=== PATIENT | male | born 1950 | race Caucasian/White ===

== ENCOUNTER → 2017-10-10 | Outpatient (CLI) | payer MEDICARE, OTHER | END | disposition home or self-care (01) | LOC: KCIC 08:02 | DX: M75.102 Unspecified rotator cuff tear or rupture of left shoulder, not specified as traumatic (principal); M25.712 Osteophyte, left shoulder | CPT/HCPCS: 73030 ==

== ENCOUNTER → 2018-03-14 | Outpatient (CLI) | payer MEDICARE ==
[~2018-03-14] MED LIST: ASPI-630 PO; LISI-130 PO
--- NOTE | 2018-03-14 11:30 | KCIC ---
CT MAXILLOFACIAL WO CONTRAST dated 03/14/2018 9:30 AM Indication: Nasal congestion, polyps.. Comparison: No comparison is available. Technique: Contiguous axial imaging the maxillofacial bones obtained with thin cut coronal and sagittal reconstruction. One or more of the following individualized dose reduction techniques were utilized for this examination: 1. Automated exposure control 2. Adjustment of the mA and/or kV according to patient size 3. Use of iterative reconstruction technique Findings: Mild mucosal thickening of the bilateral maxillary sinus. There are rounded areas of increased density at the inferior maxillary sinus on the right that could represent small polyps or mucous retention cysts. Moderate mucosal thickening of the bilateral ethmoid air cells with small polypoid foci in the upper aspect of the nasal cavity and anterior ethmoid air cells. There is a prominent jigna bullosa on the right. There is hypertrophy of the bilateral nasal turbinates. Sphenoid sinuses and frontal sinuses are clear. The nasal septum is mildly deviated to the left. Prominent nasal septal spur. No destructive changes or periostitis. Ostomy units and infundibula are patent. The mastoid air cells and middle ears are clear. Imaged portions the brain parenchyma unremarkable. There is mild generalized atrophy. No significant soft tissue abnormality. Degenerative changes of the atlantoaxial joint. Atherosclerotic calcifications of the parasellar carotid and vertebral arteries. IMPRESSION: 1. Mild to moderate mucosal thickening of the bilateral ethmoid and maxillary sinuses. There small mucous retention cysts or polyps at the inferior mastoid sinus and the right. 2. Nodular foci of increased density at the upper nasal cavity and anterior ethmoid air cells suggestive of polyps. Correlate with clinical exam. 3. Nasal septal deviation to the left. Electronically signed by: Spencer Cr MD (03/14/2018 11:27 AM) [facility]
== END | disposition home or self-care (01) ==
LOC: KCIC CT 08:51
PROVIDERS: ATTEND Otolaryngology
DX: J34.1 Cyst and mucocele of nose and nasal sinus (principal); J34.2 Deviated nasal septum; J34.89 Other specified disorders of nose and nasal sinuses; J33.8 Other polyp of sinus; J32.9 Chronic sinusitis, unspecified; I65.29 Occlusion and stenosis of unspecified carotid artery
CPT/HCPCS: 70486

== ENCOUNTER → 2018-08-28 | Outpatient (CLI) | payer MEDICARE ==
[~2018-08-28] MED LIST changes: +AMLO10TA8 PO; +ATOR20TA58 PO; +CETI10TA16 PO; +CYAN25008 PO; +FERR325T14 PO; +FURO20TA3 PO; +GABA-585 PO; +LABE200T4 PO; +LISI-334 PO; +MELA3TAB2 PO; +POTA20TA82 PO; +TAPE75TA3 PO; +TERA10CA3 PO; +TRIA1TAB5 PO; +WARF4TAB64 PO
[2018-08-28 09:58] LABS: BASO # 0.1 x10^3/uL (0.0-0.2); BASO % 1 % (0-3); EOS # 0.1 x10^3/uL (0.0-0.7); EOS % 1 % (0-3); HEMOGLOBIN 15.5 g/dL (13.0-17.5); LYMPH # 0.9 x10^3/uL (1.0-4.8); LYMPH % 10 % (24-48); MEAN CORPUSCULAR HEMOGLOBIN 32 pg (25-35); MEAN CORPUSCULAR HGB CONC 34 g/dL (31-37); MEAN CORPUSCULAR VOLUME 96 fL (79-100); MONO # 1.2 x10^3/uL (0.0-1.1); MONO % 14 % (0-9); NEUT # 6.4 x10^3uL (1.8-7.7); NEUT % 74 % (31-73); PLATELET COUNT 205 x10^3/uL (140-400); RED CELL DISTRIBUTION WIDTH 13.8 % (11.5-14.5); WHITE BLOOD COUNT 8.7 x10^3/uL (4.0-11.0)
[2018-08-28 10:13] LABS: ALBUMIN 4.1 g/dL (3.4-5.0); CREATININE 0.7 mg/dL (0.7-1.3); GFR 112.1; POTASSIUM 3.2 mmol/L (3.5-5.1); PROTHROMBIN TIME PATIENT 13.1 SEC (11.7-14.0)
[2018-08-28 11:02] LABS: BILIRUBIN,URINE SMALL (NEG); CLARITY,URINE CLEAR; COLOR,URINE AMBER; NITRITE,URINE NEGATIVE (NEG); PH,URINE 6.5; PROTEIN,URINE 30 mg/dL (NEG-TRACE)
[2018-08-28 11:11] LABS: BACTERIA,URINE FEW /HPF (0-FEW); RBC,URINE 0 /HPF (0-2); SQUAMOUS EPITHELIAL CELL,UR OCC /LPF
--- NOTE | 2018-08-28 17:25 | RAD ---
CHEST PA LATERAL Technique: PA and lateral views of the chest were obtained. Clinical History: pre op evaluation for right knee surgery Comparison: None. Findings: The heart and pulmonary vasculature appear within normal limits. The lungs are clear. The pleural margins are clear. Impression: No acute chest process is seen. Electronically signed by: Reinaldo Whitehead III, MD (08/28/2018 5:22 PM) [facility]
--- NOTE | 2018-09-08 10:20 | NUR ---
PRE - OP TESTS REPORTS WERE FAXED TO -PCP A 1222 AND ;S OFFICE AT 1231 08/29/2018 AND RECEIVED CONFIAMATIOS IN BOTH OFFICES. URINE TEST WAS REPEATED ALSO AT PCP'S OFFICE, SEE 'S H&P. MEDICAL CLEARANCE OF AND CARDIAC CLEARANCE OF ALONG WITH ECHOCARDIOGRAM REPORT WERE FAXED TO 'S OFFICE 09/07/2018 At 1015 AND RECEIVED TRANSMITTAL CONFIRMATION.
== END | disposition home or self-care (01) ==
LOC: SURGPAT 14:26
PROVIDERS: ATTEND Orthopaedic Surgery
DX: Z01.818 Encounter for other preprocedural examination (principal); M17.11 Unilateral primary osteoarthritis, right knee
CPT/HCPCS: 36415; 71046; 80048; 81001; 82040; 82306; 85025; 85610; 85651; 85730; 87086; 87641

== ENCOUNTER 2018-09-12 10:42 | Inpatient (IN) | payer MEDICARE ==
[~2018-09-12] VITALS: Ht 190.5 cm; Wt 148.3 kg
[2018-09-12] VITALS (7 sets, daily range): BP systolic 128–145; BP diastolic 74–86
[~2018-09-12 10:42] MED LIST changes: +IV RINGERS,LACTATED 1000ML 1,000 ML IV SCH; +MORPHINE SULFATE 5 MG, KETOROLAC 30MG VIAL 30 MG, ROPIVacaine 0.5% PF 60 ML, EPINEPHrin... INT ART ONE; +ONDANSETRON PF 4 MG/2 ML VIAL. IV PRN; +PROCHLORPERAZINE 10 MG/2 ML VIAL. IV PRN; -TAPE75TA3 PO; +TRANEXAMIC ACID 1,000 MG in IV NORMAL SALINE 50ML 50 ML INJ ONE; -WARF4TAB64 PO; +fentaNYL PF VIAL 100 MCG/2 ML VIAL IV PRN
[2018-09-12] MEDS ORDERED: MELOXICAM 7.5 MG TABLET PO ONE ×2 (11:38→11:44)
[2018-09-12] MEDS ORDERED: HYDROcodone/APAP 7.5/325MG 1 TAB TABLET ONE (11:38)
[2018-09-12] MEDS ORDERED: PROPOFOL 20 ML IV ONE (11:41)
[2018-09-12] MEDS ORDERED: LIDOCAINE 2% PF 5 ML VIAL. ONE (11:41)
[2018-09-12] MEDS ORDERED: ROCURONIUM 50 MG/5 ML VIAL. ONE (11:41)
[2018-09-12] MEDS ORDERED: ONDANSETRON PF 4 MG/2 ML VIAL. ONE (11:41)
[2018-09-12] MEDS ORDERED: DEXAMETHASONE SOD PHOS 4 MG/ML VIAL ONE (11:41)
[2018-09-12] MEDS ORDERED: fentaNYL PF VIAL 100 MCG/2 ML VIAL ONE ×4 (11:42→17:09)
[2018-09-12] MEDS ORDERED: HYDROcodone/APAP 7.5/325MG 1 TAB TABLET PO ONE (11:45)
[2018-09-12 12:45] LABS: PROTHROMBIN TIME PATIENT 13.6 SEC (11.7-14.0)
[2018-09-12] MEDS ORDERED: ceFAZolin SODIUM IV Push 1 GM VIAL. IVP ONE ×2 (14:35→19:00)
[2018-09-12] MEDS ORDERED: ceFAZolin SODIUM 1 GM VIAL ONE (14:52)
[2018-09-12] MEDS ORDERED: NEOSTIGMINE METHYLSULFATE 5 MG/5 ML SYRINGE. ONE (15:12)
[2018-09-12] MEDS ORDERED: GLYCOPYRROLATE 1 MG/5 ML VIAL. ONE (15:12)
[2018-09-12] MEDS ORDERED: MORPHINE SULFATE 2 MG/ML VIAL. ONE (17:09)
[2018-09-12] MEDS ORDERED: PROCHLORPERAZINE 10 MG/2 ML VIAL. ONE (17:09)
[2018-09-12] MEDS: fentaNYL PF VIAL 100 MCG/2 ML VIAL IV PRN ×2 (17:10→17:15)
[2018-09-12] MEDS: MORPHINE SULFATE 2 MG/ML VIAL. IV PRN ×2 (17:32→17:45)
--- NOTE | 2018-09-12 17:45 | PDOC4 ---
Operative Note Operative Note Date of surgery: 09/12/2018 Preoperative diagnosis: Degenerative joint disease right knee Postoperative diagnosis: Same Operative procedure: Right total knee arthroplasty Surgeon: Mark Assist: Lisa Henson Anesthesia: Gen. Estimated blood loss: 50 mL Complications: None Drains/catheters: Hemovac and pain catheter intra-articular Specimens: Cartilage surfaces to pathology Operative indications: Please see my preoperative note and clinic evaluation for detailed preoperative indications and note that we covered risks benefits postoperative course of total knee arthroplasty including the possibility of infection continued pain premature wear or loosening nerve or blood vessel damage medical or other anesthetic complications among others he agrees to proceed with surgical evaluation and treatment. Operative text: Patient was identified procedure verified patient placed in the supine position on the operating table. After adequate amounts of general anesthesia were administered the right lower extremity was prepped and draped in standard sterile fashion with a thigh tourniquet. After timeout was performed patient procedure identified and verified the right lower extremity was exsanguinated with Esmarch bandage tourniquet inflated to 350 mmHg and a midline incision was made with a medial parapatellar approach. Patella was everted and fat pad was excised. Intramedullary guide was placed and a 5 distal standard cut was made. Femoral sizing was carried out with posterior referencing and a size 8 cutting block was placed to cut the anterior posterior and chamfer cuts. Extra medullary tibial cutting guide was then placed and a trial size 7 journey baseplate trial was used with a 9 mm spacer with excellent ligament balance in flexion extension varus and valgus patella was then cut to accommodate a resurfacing 35 mm patella which was medialized lateral patellar bone was removed with a saw and a chamfered fashion to prevent any bony contact. Excellent pa tellofemoral tracking stability and motion were noted throughout. Trial components were removed thorough irrigation carried out normal saline solution bleeding points were controlled by electrocautery and the following components were cemented in place with polymethylmethacrylate cement: A size 7 journey nonporous tibial baseplate a size 8 left posterior stabilized journey 2 Oxinium femoral component and a 35 mm resurfacing round patellar component. A 9 mm spacer was placed with the knee in extension after removing any excess cement. After cement was dry spacer was removed thorough irrigation carried out normal saline solution and a 9 mm journey 2 articular insert was snapped in place Hemovac drain and pain catheter were placed pain catheter mixture was injected throughout the joint capsule and surrounding tissues retinaculum closure with #2 Ethibond suture and #1 strata fix suture in a running fashion. Subcutaneous closure with buried Vicryl suture subcuticular 3-0 strata fix Monocryl laura dressing with Acticoat was placed toes were noted be warm pink find deflation of tourniquet patient returned recovery room in stable condition having tolerated procedure well. ANIKA TRAORE MD September 12, 2018 17:45
[2018-09-12] MEDS ORDERED: HYDROmorphone 2 MG/ML VIAL ONE (17:52)
[2018-09-12] MEDS: HYDROmorphone 2 MG/ML VIAL IV PRN ×4 (17:55→18:43)
[2018-09-12] MEDS ORDERED: DEXTROSE 50% 25 GM / 50ML DISP.SYRIN. IV PRN (18:30)
[2018-09-12] MEDS ORDERED: diphenhydrAMINE 50 MG/ML VIAL IV PRN (18:30)
[2018-09-12] MEDS ORDERED: MORPHINE SULFATE 4 MG/ML VIAL. IV PRN (18:30)
[2018-09-12] MEDS ORDERED: fentaNYL PF VIAL 100 MCG/2 ML VIAL IV PRN (18:30)
[2018-09-12] MEDS ORDERED: 0.9 % SODIUM CHLORIDE 10 ML DISP.SYRIN. IV PRN (18:30)
[2018-09-12] MEDS ORDERED: CALCIUM CARBONATE 500 MG TAB.CHEW PO PRN (18:30)
[2018-09-12] MEDS ORDERED: PROCHLORPERAZINE 5 MG TABLET. PO PRN (18:30)
[2018-09-12] MEDS ORDERED: oxyCODONE IR 5 MG TABLET PO PRN (18:30)
[2018-09-12] MEDS ORDERED: ZOLPIDEM 5 MG TABLET. PO PRN (18:30)
--- NOTE | 2018-09-12 18:40 | RAD ---
EXAM: Right knee, 2 views. HISTORY: Arthroplasty. COMPARISON: None. FINDINGS: 2 views of the right knee are obtained. There is a right knee arthroplasty in expected position. There is surrounding soft tissue gas, joint fluid and a surgical drain due to recent surgery. There are extensive atherosclerotic vascular calcifications. IMPRESSION: Right knee arthroplasty in expected position. Electronically signed by: Rita Durbin MD (09/12/2018 6:37 PM) [facility]
--- NOTE | 2018-09-12 19:00 | NUR ---
pt transfered from PACU via bed accompanied by staff and family members pt had right total knee ,rating pain as 4 @ this time.right lower extremities still with numbness able to wiggle toes pedal pulses palpable.
[2018-09-12] MEDS: KETOROLAC 30MG VIAL 30 MG, BUPIVACAINE MPF 0.25% 20 ML, EPINEPHrine 0.5 MG in TOTAL VOL... INT ART SCH (19:41)
[2018-09-12] MEDS ORDERED: NON FORMULARY ITEM (Melatonin 1 TAB) PO SCH (21:00)
[2018-09-12] MEDS ORDERED: IV NORMAL SALINE 1000ML BAG 1,000 ML IV SCH (21:00)
[2018-09-12] MEDS ORDERED: WARFARIN 7.5 MG TABLET. PO ONE (21:00)
[2018-09-12] MEDS: TERAZOSIN 5 MG CAPSULE. PO SCH (21:03)
[2018-09-12] MEDS: amLODIPine BESYLATE 10 MG TABLET PO SCH (21:06)
[2018-09-12] MEDS: LISINOPRIL 20 MG TABLET PO SCH (21:07)
[2018-09-12] MEDS: LABETALOL HCL 200 MG TABLET PO SCH (21:08)
[2018-09-12] MEDS: ceFAZolin SODIUM 3 GM in IV DEXTROSE 5% 100ML 100 ML IV SCH (21:08)
[2018-09-13] VITALS (7 sets, daily range): BP systolic 87–155; BP diastolic 53–85
[2018-09-13] MEDS: ceFAZolin SODIUM 3 GM in IV DEXTROSE 5% 100ML 100 ML IV SCH ×2 (03:03→08:08)
--- NOTE | 2018-09-13 03:50 | NUR ---
pt voiding small amount of urine 25ml to 50 ml bladder scan pt showing 189ml pt denies feeling pressure on the bladder area instructed pt to let nurse know if he start feeling bladder pressure.
[2018-09-13] MEDS ORDERED: GABAPENTIN 100 MG CAPSULE. PO SCH (06:00)
[2018-09-13] MEDS: ONDANSETRON ODT 4 MG TAB.RAPDIS. PO SCH ×4 (06:00→16:59)
[2018-09-13] MEDS: ONDANSETRON PF 4 MG/2 ML VIAL. IV SCH ×4 (06:00→18:00)
[2018-09-13] MEDS: traMADol 50 MG TABLET PO SCH ×3 (06:00→17:00)
[2018-09-13] MEDS ORDERED: MAGNESIUM HYDROXIDE 2,400 MG/30 ML ORAL.SUSP. PO PRN (06:00)
[2018-09-13 06:30] LABS: HEMATOCRIT 39.3 % (39.0-53.0); HEMOGLOBIN 13.3 g/dL (13.0-17.5)
[2018-09-13 06:35] LABS: PROTHROMBIN TIME PATIENT 13.6 SEC (11.7-14.0)
[2018-09-13] MEDS: KETOROLAC 30MG VIAL 30 MG, BUPIVACAINE MPF 0.25% 20 ML, EPINEPHrine 0.5 MG in TOTAL VOL... INT ART SCH (07:05)
[2018-09-13] MEDS: POTASSIUM CHLORIDE 20 MEQ TABLET.ER. PO SCH (08:15)
[2018-09-13] MEDS: SENNOSIDES/DOCUSATE 8.6/50MG TABLET. PO SCH (08:16)
[2018-09-13] MEDS: MELOXICAM 7.5 MG TABLET PO SCH (08:16)
[2018-09-13] MEDS: FERROUS SULFATE 325 MG TABLET. PO SCH ×2 (08:16→16:59)
[2018-09-13] MEDS: CYANOCOBALAMIN (VITAMIN B-12) 1,000 MCG TABLET. PO SCH (08:17)
[2018-09-13] MEDS: MULTIVITAMIN with MINERAL TABLET. PO SCH (08:17)
[2018-09-13] MEDS: LABETALOL HCL 200 MG TABLET PO SCH ×2 (08:18→21:24)
[2018-09-13] MEDS: ASPIRIN CHEWABLE 81 MG TABLET. PO SCH (08:19)
[2018-09-13] MEDS: FUROSEMIDE 20 MG TABLET PO SCH (08:19)
[2018-09-13] MEDS: CETIRIZINE HCL 10 MG TABLET. PO SCH (08:19)
[2018-09-13] MEDS: TRIAMTERENE/HCTZ 37.5/25MG TABLET. PO SCH (08:20)
[2018-09-13] MEDS ORDERED: FERROUS SULFATE 325 MG TABLET. PO SCH (09:00)
[2018-09-13] MEDS: LISINOPRIL 20 MG TABLET PO SCH ×2 (09:00→21:21)
[2018-09-13] MEDS ORDERED: ATORVASTATIN CALCIUM 20 MG TABLET PO SCH (09:00)
[2018-09-13] MEDS: amLODIPine BESYLATE 10 MG TABLET PO SCH ×2 (09:00→21:22)
[2018-09-13] MEDS: ACETAMINOPHEN 500 MG TABLET PO SCH ×3 (09:00→21:23)
--- NOTE | 2018-09-13 09:00 | NUR ---
after breakfast; up in the recliner . has increase in pain. medicated with fentanyl 25 mcg. iv came out while working with OT. #22 insyte used to restart iv in left upper wrist ; last piggyback given and kept for iv pain med.
[2018-09-13] MEDS: oxyCODONE IR 5 MG TABLET PO PRN ×3 (09:35→22:15)
--- NOTE | 2018-09-13 11:01 | NUR ---
Pharmacy Warfarin Dosing Note S:Pharmacy consulted to assist with anticoagulation therapy started 09/12/18 with target INR: 1.6 - 2.5 O:YANNI KOROMA is a 68 year old M with TKA LABS: Last INR: 1.1 Last HGB: 13.3 Last HCT: 39.3 Last PLT: - Last dose of 7.5 mg given on 09/12/18 at Previous Regimen: Vitamin K given: Drug Interaction Changes: Ongoing Drug Interactions: A:INR of 1.1 is below desired range. Target range for this patient is: 1.6 - 2.5 P: Warfarin dose: 7.5 mg Today at 1600 Bridge Therapy: None Next INR due TOMORROW. Pharmacy anticoagulation service will continue to follow. REGINO VIDES [place], 09/13/18 [id number]
[2018-09-13] MEDS ORDERED: ONDANSETRON ODT 4 MG TAB.RAPDIS. PO PRN (12:00)
[2018-09-13] MEDS ORDERED: ONDANSETRON PF 4 MG/2 ML VIAL. IV PRN (12:00)
[2018-09-13] MEDS ORDERED: BISACODYL 10 MG SUPP.RECT. PR PRN (16:00)
[2018-09-13] MEDS ORDERED: WARFARIN 7.5 MG TABLET. PO ONE (16:00)
--- NOTE | 2018-09-13 16:00 | NUR ---
continues to be painful with ambulation. up in recliner. continue to void small amount frequently 100cc straw colored urine. visits with family. original surgical dressing removed. KARRIE dressing clean and dry. Hemovac and IAC removed (blue tip intact); tolerated well.
--- NOTE | 2018-09-13 17:43 | PDOC ---
PROGRESS NOTES Subjective Subjective Problems overnight: Had some difficulty urinating overnight and this morning. He was only able to go a small amount and had some retention but only about 180 mL maximum on ultrasound bladder scan. He does have some stiffness in the knee but getting up and around with some discomfort Objective Vital Signs Vital Signs Date Time Temp Pulse Resp B/P (MAP) Pulse Ox O2 Delivery O2 Flow Rate FiO2 09/13/18 17:00 20 Room Air 09/13/18 11:30 98.3 89 98/53 (68) 95 98.3 09/13/18 07:00 3.0 Physical Exam On examination knee flexion is overall good he does have some hamstring tightness good tracking and ligament balance distal neurovascular status intact Labs Laboratory Tests Test 09/12/18 11:50 09/13/18 05:30 Prothrombin Time 13.6 SEC (11.7-14.0) 13.6 SEC (11.7-14.0) Prothromb Time International Ratio 1.1 (0.8-1.1) 1.1 (0.8-1.1) Activated Partial Thromboplast Time 31 SEC (24-38) Hemoglobin 13.3 g/dL (13.0-17.5) Hematocrit 39.3 % (39.0-53.0) Mean Corpuscular Hemoglobin Concent 34 g/dL (31-37) Laboratory Tests Test 09/13/18 05:30 Hemoglobin 13.3 g/dL (13.0-17.5) Hematocrit 39.3 % (39.0-53.0) Mean Corpuscular Hemoglobin Concent 34 g/dL (31-37) Prothrombin Time 13.6 SEC (11.7-14.0) Prothromb Time International Ratio 1.1 (0.8-1.1) Imaging Postop x-rays show excellent alignment sizing of his total knee arthroplasty Assessment Assessment POD# [1], S/P [right total knee arthroplasty] Plan Plan of Care Continue mobilize with physical therapy Coumadin anticoagulation Modified pain medications to achieve good relief We will continue to monitor his ability to urinate and potentially add medication if the situation does not improve ANIKA TRAORE MD September 13, 2018 17:43
--- NOTE | 2018-09-13 20:45 | NUR ---
patient stated still voiding small amount during the day ,denies pressure on the bladder area bladder scan patient showing greater than 141 ml encourage to increase po intake.
[2018-09-13] MEDS: ATORVASTATIN CALCIUM 20 MG TABLET PO SCH (21:19)
[2018-09-13] MEDS: TERAZOSIN 5 MG CAPSULE. PO SCH (21:23)
[2018-09-14] MEDS: traMADol 50 MG TABLET PO SCH ×5 (00:17→23:54)
[2018-09-14] MEDS: ACETAMINOPHEN 500 MG TABLET PO SCH ×4 (02:41→20:34)
[2018-09-14 02:46] VITALS: BP 98/61
[2018-09-14 04:38] LABS: HEMATOCRIT 34.3 % (39.0-53.0); HEMOGLOBIN 11.5 g/dL (13.0-17.5)
[2018-09-14 04:52] LABS: PROTHROMBIN TIME PATIENT 17.6 SEC (11.7-14.0)
[2018-09-14 06:00] VITALS: BP 98/64
[2018-09-14 06:22] VITALS: BP 105/70
[2018-09-14 08:05] VITALS: BP 109/69
[2018-09-14] MEDS: CYANOCOBALAMIN (VITAMIN B-12) 1,000 MCG TABLET. PO SCH (08:08)
[2018-09-14] MEDS: oxyCODONE IR 5 MG TABLET PO PRN ×2 (08:08→13:03)
[2018-09-14] MEDS: MELOXICAM 7.5 MG TABLET PO SCH (08:09)
[2018-09-14] MEDS: CETIRIZINE HCL 10 MG TABLET. PO SCH (08:10)
[2018-09-14] MEDS: FUROSEMIDE 20 MG TABLET PO SCH (08:10)
[2018-09-14] MEDS: MULTIVITAMIN with MINERAL TABLET. PO SCH (08:10)
[2018-09-14] MEDS: POTASSIUM CHLORIDE 20 MEQ TABLET.ER. PO SCH (08:10)
[2018-09-14] MEDS: SENNOSIDES/DOCUSATE 8.6/50MG TABLET. PO SCH (08:10)
[2018-09-14] MEDS: FERROUS SULFATE 325 MG TABLET. PO SCH ×2 (08:10→17:08)
[2018-09-14] MEDS: ASPIRIN CHEWABLE 81 MG TABLET. PO SCH (08:11)
[2018-09-14] MEDS: amLODIPine BESYLATE 10 MG TABLET PO SCH ×2 (08:20→20:35)
[2018-09-14] MEDS: TRIAMTERENE/HCTZ 37.5/25MG TABLET. PO SCH (08:20)
[2018-09-14] MEDS: LISINOPRIL 20 MG TABLET PO SCH ×2 (08:21→20:36)
[2018-09-14] MEDS: LABETALOL HCL 200 MG TABLET PO SCH ×2 (08:21→20:36)
--- NOTE | 2018-09-14 09:00 | NUR ---
Antihypertensive held for blood pressure of 109/69, pulse 99
--- NOTE | 2018-09-14 10:39 | NUR ---
Pharmacy Warfarin Dosing Note S:Pharmacy consulted to assist with anticoagulation therapy started 09/12/18 with target INR: 1.6 - 2.5 O:YANNI KOROMA is a 68 year old M with TKA LABS: Last INR: 1.5 Last HGB: 11.5 Last HCT: 34.3 Last PLT: - Last dose of 7.5 mg given on 09/13/18 at Previous Regimen: Vitamin K given: Drug Interaction Changes: Ongoing Drug Interactions: A:INR of 1.5 is below desired range. Target range for this patient is: 1.6 - 2.5 P: Warfarin dose: 3 mg Today at 1600 Bridge Therapy: None Next INR due TOMORROW. Pharmacy anticoagulation service will continue to follow. REGINO VIDES [facility], 09/14/18 [id number]
[2018-09-14] MEDS ORDERED: WARFARIN 3 MG TABLET. PO ONE (16:00)
[2018-09-14 18:04] VITALS: BP 105/73
[2018-09-14] MEDS: TERAZOSIN 5 MG CAPSULE. PO SCH (20:34)
[2018-09-14] MEDS: ATORVASTATIN CALCIUM 20 MG TABLET PO SCH (20:34)
[2018-09-15] MEDS: ACETAMINOPHEN 500 MG TABLET PO SCH ×3 (02:53→15:00)
[2018-09-15 04:39] LABS: HEMATOCRIT 31.9 % (39.0-53.0)
[2018-09-15 04:47] LABS: PROTHROMBIN TIME PATIENT 18.5 SEC (11.7-14.0)
[2018-09-15] MEDS: traMADol 50 MG TABLET PO SCH ×2 (05:51→12:10)
[2018-09-15 06:16] VITALS: BP 145/75
[2018-09-15] MEDS ORDERED: BISACODYL 5 MG TABLET.DR. PO PRN (07:00)
[2018-09-15] MEDS: SENNOSIDES/DOCUSATE 8.6/50MG TABLET. PO SCH (07:15)
[2018-09-15] MEDS: CYANOCOBALAMIN (VITAMIN B-12) 1,000 MCG TABLET. PO SCH (07:19)
[2018-09-15] MEDS: MULTIVITAMIN with MINERAL TABLET. PO SCH (07:20)
[2018-09-15] MEDS: CETIRIZINE HCL 10 MG TABLET. PO SCH (07:20)
[2018-09-15] MEDS: POTASSIUM CHLORIDE 20 MEQ TABLET.ER. PO SCH (07:20)
[2018-09-15] MEDS: ASPIRIN CHEWABLE 81 MG TABLET. PO SCH (07:21)
[2018-09-15] MEDS: FERROUS SULFATE 325 MG TABLET. PO SCH (07:21)
[2018-09-15] MEDS: FUROSEMIDE 20 MG TABLET PO SCH (07:21)
[2018-09-15] MEDS: MELOXICAM 7.5 MG TABLET PO SCH (07:21)
[2018-09-15] MEDS ORDERED: BISACODYL 10 MG SUPP.RECT. PR ONE (07:30)
[2018-09-15] MEDS: TRIAMTERENE/HCTZ 37.5/25MG TABLET. PO SCH (08:39)
[2018-09-15] MEDS: oxyCODONE IR 5 MG TABLET PO PRN ×2 (08:39→13:14)
[2018-09-15 08:44] VITALS: BP 151/74
--- NOTE | 2018-09-15 10:09 | NUR ---
Pharmacy Warfarin Dosing Note S:Pharmacy consulted to assist with anticoagulation therapy started 09/12/18 with target INR: 1.6 - 2.5 O:YANNI KOROMA is a 68 year old M with TKA Allergies:No Known Drug Allergies Height: 6 feet, 3 inches Weight: 148.3 kg LABS: Last INR: 1.6 Last HGB: 11 Last HCT: 31.9 Last PLT: - Ongoing Drug Interactions: A:INR within desired Range. Target Range for this patient is: 1.6 - 2.5 P: Warfarin dose: 4 mg will be given today prior to discharge. Give 4 mg daily. Draw INR on 09/18/18, and request attending physician to dose warfarin for a goal INR 1.6 - 2.5 through end of therapy 10/09/18 (4 weeks of therapy). Indication for warfarin is prevention of VTE after major joint surgery. Joanna Morales RPH, 09/15/18 1019
[2018-09-15] MEDS ORDERED: WARF4TAB64 PO (10:23)
--- NOTE | 2018-09-15 10:55 | NUR ---
states that he was uncomfortable all night ; related to not being able to have a bowel movement. ordered Dulcolax Supp and tabs and were given to him this am. He had large results. feels better except for being tired. shower completed. wants Charlie hose on at bedtime. he is planning on going to [facility] today. although he is better than Tuesday. still unable to ambulate long distances,lift knee to get into a tub/shower combo like at home.
[2018-09-15 12:08] VITALS: BP 150/69
[2018-09-15] MEDS: LISINOPRIL 20 MG TABLET PO SCH (12:10)
[2018-09-15] MEDS: amLODIPine BESYLATE 10 MG TABLET PO SCH (12:11)
[2018-09-15] MEDS ORDERED: WARFARIN 4 MG TABLET. PO SCH (13:00)
[2018-09-15 13:16] VITALS: BP 154/80
[2018-09-15] MEDS: LABETALOL HCL 200 MG TABLET PO SCH (13:16)
--- NOTE | 2018-09-15 15:04 | NUR ---
reviewed discharge instructions with patient and . script given to patient. instructed on dressing change per pat's request. supplies given. saline lock out Addendum: 09/15/18 at 1507 by NATIVIDAD HAMMER RN script given to [facility]
--- NOTE | 2018-09-15 16:06 | PATHOLOGY ---
[facility] Accession Number: [id number] . 01 Material submitted: . knee - RIGHT KNEE BONE AND TISSUE. Modifiers: right . 01 Clinical history: . Osteoarthritis . 02 Diagnosis: "Right knee bone and tissue", removal: - Degenerative osteoarthritis. - Scant fragments of unremarkable fibrous tissue. (SKM:minerva; 09/15/2018) QMS/09/15/2018 . 02 Electronically signed: . Hernan Presley MD, Pathologist NPI- [id number] . 01 Gross description: . The specimen is received in formalin, labeled "Arash Love, right knee bone and tissue". Received are multiple segments of bone, including the tibial plateau, admixed with soft tissue measuring 12.5 x 10.6 x 3.9 cm in aggregate dimensions. The meniscus is present. The articular surfaces display evidence of eburnation. The specimen is submitted representatively in cassette A1, following decalcification. (CAA; 09/14/2018) QAC/QAC . 02 Pathologist provided ICD-10: M17.11 . 02 CPT . 908189, 739190 Specimen Comment: A courtesy copy of this report has been sent to Specimen Comment: [phone]. Specimen Comment: Report sent to Performed at: 01 [facility] [address], [place] [id number] MD Gian Up MD Phone: [phone] Performed at: [address] [facility] [address] [place], [place] [id number] MD Hiram Pabon MD Phone: [phone]
[2018-09-15] MEDS ORDERED: TAPE75TA3 PO (16:14)
--- NOTE | 2018-09-15 16:15 | SNU/HH DC ---
DISCHARGE ORDERS DISCHARGE INFORMATION: CONDITION ON DISCHARGE: Stable CODE STATUS: Code Status: Full ALF: SNF STAY <30 DAYS: Yes POST DISCHARGE ORDERS: ACTIVITY ORDERS: No restrictions, Walk in house, Other, see below WEIGHT BEARING STATUS: No restrictions, Full weight bearing, As tolerated BATHING ORDERS: Shower-keep dressing dry, No Tub Bath until see Dr. PRIETO AFTER DISCHARGE: Regular WOUND/INCISION CARE: Ice to area for comfort, Do not change dressing OTHER WOUND INSTRUCTIONS: remove Marta battery pack 09/19 and unscrew from tubing and tape downwards CHECKS AFTER DISCHARGE: CHECKS AFTER DISCHARGE: Check blood press - daily COMMENTS: PT/INR to be drawn per facility's protocol; FOLLOW-UP: ADDITIONAL FOLLOW-UP: call [phone] for a 2 week post op appt with Dr. Flores ANTICOAGULATION F/U NEEDED: House physician to manage/monitor coumadin TREATMENT/EQUIPMENT ORDERS: ADAPTIVE EQUIPMENT NEEDED: None Physical Therapy For: Evalulation/Treatment Occupational Therapy For: Evaluation/Treatment DISCHARGE MEDICATIONS: Home Meds Reported Medications Warfarin Sodium (WARFARIN SODIUM) 4 Mg Tablet, 4 MG PO 1X for blood thinner for 30 Days, TAB 09/15/18 Terazosin Hcl (TERAZOSIN HCL) 10 Mg Capsule, 1 CAP PO QHS for PROSTATE, #90 CAP 1 Refill 09/08/18 Cetirizine Hcl (CETIRIZINE HCL) 10 Mg Tablet, 1 TAB PO DAILY for ALLERGY, #30 TAB 5 Refills 09/08/18 Furosemide (FUROSEMIDE) 20 Mg Tablet, 0.5 TAB PO DAILY for SWELLING, #90 TAB 1 Refill 09/08/18 Gabapentin (GABAPENTIN ) 100 Mg Capsule, 100 MG PO BID for NEUROGENIC PAIN, CAP 09/08/18 Amlodipine Besylate (AMLODIPINE BESYLATE) 10 Mg Tablet, 10 MG PO BID for HYPERTENSION, TAB 09/08/18 Lisinopril (LISINOPRIL) 20 Mg Tablet, 1 TAB PO BID for HYPERTENSION, #30 TAB 5 Refills 09/08/18 Atorvastatin Calcium (ATORVASTATIN CALCIUM) 20 Mg Tablet, 1 TAB PO DAILY for HIGH CHOLESTEROL, #30 TAB 5 Refills 09/08/18 Potassium Chloride (POTASSIUM CHLORIDE) 20 Meq Tablet.er, 20 MEQ PO DAILY for POTASSIUM SUPPLEMENT, TAB.SR 09/08/18 Ferrous Sulfate (FERROUS SULFATE) 325 Mg Tablet, 1 TAB PO DIRECTED for IRON SUPPLEMENT, #30 TAB 3 Refills 09/08/18 Cyanocobalamin (Vitamin B-12) (Vitamin B12) 2,500 Mcg Tablet, 2500 MCG PO DAILY for SUPPLEMENT, TAB 09/08/18 Labetalol Hcl (LABETALOL HCL) 200 Mg Tablet, 1 TAB PO BID for HYPERTENSION, #60 TAB 5 Refills 09/08/18 Melatonin (MELATONIN) 3 Mg Tablet, 1 TAB PO QHS for HELP SLEEP, #30 TAB 2 Refills 09/08/18 Triamterene/Hydrochlorothiazid (TRIAMTERENE-HCTZ 75-50 MG TAB) 1 Each Tablet, 1 TAB PO DAILY for HYPERTENSION, #30 TAB 5 Refills 09/08/18 Aspirin (ASPIRIN) 81 Mg Tab.chew, PO, TAB.CHEW 02/09/16 ANIKA FLORES MD September 15, 2018 16:15
--- NOTE | 2018-09-15 16:20 | PDOC ---
PROGRESS NOTES Subjective Subjective Problems overnight: Delayed note from 09/14/2018, knee is sore but getting up and around relatively well with physical therapy Objective Vital Signs Vital Signs Date Time Temp Pulse Resp B/P (MAP) Pulse Ox O2 Delivery O2 Flow Rate FiO2 09/15/18 13:17 20 09/15/18 13:16 108 154/80 09/15/18 12:08 97.8 93 Room Air 97.8 09/15/18 06:16 95.0 Physical Exam Akanksha dressing intact he has good range of motion distal neurovascular status intact Labs Laboratory Tests Test 09/14/18 03:55 09/15/18 04:15 Hemoglobin 11.5 g/dL (13.0-17.5) 11.0 g/dL (13.0-17.5) Hematocrit 34.3 % (39.0-53.0) 31.9 % (39.0-53.0) Mean Corpuscular Hemoglobin Concent 34 g/dL (31-37) 34 g/dL (31-37) Prothrombin Time 17.6 SEC (11.7-14.0) 18.5 SEC (11.7-14.0) Prothromb Time International Ratio 1.5 (0.8-1.1) 1.6 (0.8-1.1) Laboratory Tests Test 09/15/18 04:15 Hemoglobin 11.0 g/dL (13.0-17.5) Hematocrit 31.9 % (39.0-53.0) Mean Corpuscular Hemoglobin Concent 34 g/dL (31-37) Prothrombin Time 18.5 SEC (11.7-14.0) Prothromb Time International Ratio 1.6 (0.8-1.1) Assessment Assessment POD# [2], S/P [total knee arthroplasty] Plan Plan of Care Continue mobilize with physical therapy, Coumadin anticoagulation ANIKA TRAORE MD September 15, 2018 16:20
--- NOTE | 2018-09-15 17:30 | NUR ---
report called to Anneliese at [facility]. reviewed lab , medications and activity level . questions answered
--- NOTE | 2018-09-15 19:34 | DS ---
DATE OF DISCHARGE: 09/15/2018 PRINCIPAL DIAGNOSIS: Osteoarthritis, right knee. PROCEDURE: Right total knee arthroplasty. DISPOSITION: [facility]. DISCHARGE INSTRUCTIONS: Follow up with Dr. Flores in 2 weeks. DISCHARGE INSTRUCTIONS: Weightbearing as tolerated, standard total knee protocol, maintain KARRIE dressing. DISPOSITION MEDICATIONS: According to his list including Nucynta 50 mg p.o. q.4h. p.r.n. pain, Coumadin as directed by Anticoagulation Clinic and resume his other preoperative medications. BRIEF DESCRIPTION OF HOSPITAL COURSE: The patient underwent uncomplicated total knee arthroplasty, progressed well through physical therapy, remained medically stable. He has a relatively poor pain tolerance, but has previous narcotic addiction issues and due to his difficulties with ambulation and activities of daily living, was discharged in otherwise stable condition to [facility]. ANIKA FLORES MD DR: [email or web address] JOB#: [id number] / [id number]
== END 2018-09-15 17:30 | DRG 470 ==
LOC: OPSVCIP 10:42 → 4 SOUTHEST 19:15
PROVIDERS: ADMIT Orthopaedic Surgery; ATTEND Orthopaedic Surgery
PROC: 0SRC069 Replacement of Right Knee Joint with Oxidized Zirconium on Polyethylene Synthetic Substitute, Cemented, Open Approach (ICD-10-PCS; principal; 2018-09-12 12:00)
DX: M17.11 Unilateral primary osteoarthritis, right knee (principal); E78.5 Hyperlipidemia, unspecified; M70.61 Trochanteric bursitis, right hip
CPT/HCPCS: 36415; 73560; 85014; 85018; 85610; 85730; 86850; 86900; 86901; 88305; 88311; A7015; C1713; J0171; J0690; J0696; J0780; J1100; J1170; J1885; J2001; J2270; J2405; J2704; J2710; J2795; J3010; J3490; J7030; J7120; Q0162; 97116; 97150; 97530; 97535; C1769

== ENCOUNTER 2018-12-29 09:52 | Emergency (ER) | payer MEDICARE ==
[~2018-12-29] VITALS: Ht 190.5 cm; Wt 144.2 kg
[~2018-12-29 09:52] MED LIST changes: -IV RINGERS,LACTATED 1000ML 1,000 ML IV SCH; -MORPHINE SULFATE 5 MG, KETOROLAC 30MG VIAL 30 MG, ROPIVacaine 0.5% PF 60 ML, EPINEPHrin... INT ART ONE; -ONDANSETRON PF 4 MG/2 ML VIAL. IV PRN; -PROCHLORPERAZINE 10 MG/2 ML VIAL. IV PRN; +TAPE75TA3 PO; -TRANEXAMIC ACID 1,000 MG in IV NORMAL SALINE 50ML 50 ML INJ ONE; +WARF4TAB64 PO; -fentaNYL PF VIAL 100 MCG/2 ML VIAL IV PRN
[2018-12-29] MEDS ORDERED: IPRATRPIUM/ALBUTEROL 0.5/2.5MG 3 ML NEBU. NEB ONE (10:30)
[2018-12-29] MEDS ORDERED: ASPIRIN 325 MG TABLET PO ONE (10:30)
[2018-12-29] MEDS ORDERED: DEXAMETHASONE SOD PHOS 20 MG/5 ML VIAL. IV ONE (10:30)
[2018-12-29] MEDS ORDERED: IV NORMAL SALINE 1000ML BAG 1,000 ML IV ONE (10:30)
[2018-12-29 10:48] LABS: BASO % 1 % (0-3); EOS % 1 % (0-3); HEMATOCRIT 38.8 % (39.0-53.0); HEMOGLOBIN 13.4 g/dL (13.0-17.5); LYMPH # 0.6 x10^3/uL (1.0-4.8); LYMPH % 10 % (24-48); MEAN CORPUSCULAR HEMOGLOBIN 33 pg (25-35); MEAN CORPUSCULAR HGB CONC 35 g/dL (31-37); MEAN CORPUSCULAR VOLUME 95 fL (79-100); MONO # 0.8 x10^3/uL (0.0-1.1); MONO % 13 % (0-9); NEUT # 4.6 x10^3/uL (1.8-7.7); NEUT % 75 % (31-73); PLATELET COUNT 199 x10^3/uL (140-400); RED BLOOD COUNT 4.09 x10^6/uL (4.30-5.70); RED CELL DISTRIBUTION WIDTH 16.4 % (11.5-14.5); WHITE BLOOD COUNT 6.2 x10^3/uL (4.0-11.0)
[2018-12-29 11:06] LABS: CALCIUM 9.4 mg/dL (8.5-10.1); CREATININE 0.6 mg/dL (0.7-1.3); POTASSIUM 3.6 mmol/L (3.5-5.1)
[2018-12-29 11:13] LABS: ALBUMIN 3.9 g/dL (3.4-5.0); ALBUMIN/GLOBULIN RATIO 1.3 (1.0-1.7); MAGNESIUM 1.4 mg/dL (1.8-2.4); TOTAL BILIRUBIN 0.8 mg/dL (0.2-1.0); TOTAL PROTEIN 6.9 g/dL (6.4-8.2)
--- NOTE | 2018-12-29 11:16 | PHYS DOC ---
Past Medical History Past Medical History: High Cholesterol, Hypertension, Other Additional Past Medical Histor: NEUROPATHY Past Surgical History: Knee Replacement (right) Smoking: Quit Greater Than 1 Year Alcohol Use: Heavy Drug Use: None Adult General Chief Complaint Chief Complaint: SHORTNESS OF BREATH HPI HPI 68-year-old male presents with report of shortness of breath which is worse at night when he lays down. Patient reports he has had some problems with shortness of breath over the last 2 weeks. Denies fever or chills. Patient was seen by his PCP and prescribed azithromycin yesterday. Patient reports he still has some shortness of breath. Denies nausea or vomiting. Denies fever or chills. Denies known sick contacts. Patient does report some cough. Denies increased leg swelling or calf tenderness. Denies chest pain or pleuritic pain. Review of Systems Review of Systems Constitutional: Denies fever or chills Eyes: Denies redness or eye pain HENT: Denies nasal congestion or sore throat Respiratory: Reports cough and shortness of breath Cardiovascular: Denies chest pain or palpitations GI: Denies abdominal pain, nausea, or vomiting : Denies dysuria or hematuria Musculoskeletal: Denies back pain or joint pain Integument: Denies rash or skin lesions Neurologic: Denies headache, focal weakness or sensory changes Complete systems were reviewed and found to be within normal limits, except as documented in this note. Current Medications Current Medications Current Medications Medications (Trade) Dose Ordered Sig/Larissa Start Time Stop Time Status Last Admin Dose Admin Albuterol/ Ipratropium (Duoneb) 3 ml 1X ONCE 12/29/18 10:30 12/29/18 10:31 DC 12/29/18 10:40 3 ML Aspirin (Ira Aspirin) 325 mg 1X ONCE 12/29/18 10:30 12/29/18 10:31 DC 12/29/18 10:49 325 MG Dexamethasone Sodium Phosphate (Decadron) 10 mg 1X ONCE 12/29/18 10:30 12/29/18 10:31 DC 12/29/18 10:49 10 MG Info (CONTRAST GIVEN -- Rx MONITORING) 1 each PRN DAILY PRN 12/29/18 12:00 12/31/18 11:59 Iohexol (Omnipaque 350 Mg/ml) 100 ml 1X ONCE 12/29/18 12:00 12/29/18 12:01 DC 12/29/18 12:46 100 ML Magnesium Sulfate 50 ml @ 25 mls/hr 1X ONCE 12/29/18 11:30 12/29/18 13:29 DC 12/29/18 11:34 25 MLS/HR Sodium Chloride 1,000 ml @ 1,000 mls/hr 1X ONCE 12/29/18 10:30 12/29/18 11:29 DC 12/29/18 10:49 1,000 MLS/HR Allergies Allergies Allergies Coded Allergies Type Severity Reaction Last Updated Verified No Known Drug Allergies 08/24/18 No Physical Exam Physical Exam Constitutional: Well developed, well nourished, no acute distress, non-toxic appearance HENT: Normocephalic, atraumatic, oropharynx moist Eyes: Conjunctiva normal, no discharge Neck: Normal range of motion, no tenderness, supple Cardiovascular: Heart rate normal, regular rhythm Lungs & Thorax: Bilateral breath sounds diminished at bases Abdomen: Soft, no tenderness Skin: Warm, dry, no erythema, no rash Back: No tenderness, no CVA tenderness Extremities: No tenderness, ROM intact, 1+ bilateral lower extremity edema Neurologic: Alert and oriented X 3, no focal deficits noted Psychologic: Affect normal, judgement normal Current Patient Data Vital Signs Vital Signs Date Time Temp Pulse Resp B/P (MAP) Pulse Ox O2 Delivery O2 Flow Rate FiO2 12/29/18 11:38 70 140/68 (92) 92 Room Air 12/29/18 10:18 98.0 16 98.0 Lab Values Laboratory Tests Test 12/29/18 10:40 White Blood Count 6.2 x10^3/uL (4.0-11.0) Red Blood Count 4.09 x10^6/uL (4.30-5.70) L Hemoglobin 13.4 g/dL (13.0-17.5) Hematocrit 38.8 % (39.0-53.0) L Mean Corpuscular Volume 95 fL (79-100) Mean Corpuscular Hemoglobin 33 pg (25-35) Mean Corpuscular Hemoglobin Concent 35 g/dL (31-37) Red Cell Distribution Width 16.4 % (11.5-14.5) H Platelet Count 199 x10^3/uL (140-400) Neutrophils (%) (Auto) 75 % (31-73) H Lymphocytes (%) (Auto) 10 % (24-48) L Monocytes (%) (Auto) 13 % (0-9) H Eosinophils (%) (Auto) 1 % (0-3) Basophils (%) (Auto) 1 % (0-3) Neutrophils # (Auto) 4.6 x10^3/uL (1.8-7.7) Lymphocytes # (Auto) 0.6 x10^3/uL (1.0-4.8) L Monocytes # (Auto) 0.8 x10^3/uL (0.0-1.1) Eosinophils # (Auto) 0.0 x10^3/uL (0.0-0.7) Basophils # (Auto) 0.0 x10^3/uL (0.0-0.2) D-Dimer (Sherrill) 2.54 ug/mlFEU (0.00-0.50) H Sodium Level 140 mmol/L (136-145) Potassium Level 3.6 mmol/L (3.5-5.1) Chloride Level 100 mmol/L (98-107) Carbon Dioxide Level 28 mmol/L (21-32) Anion Gap 12 (6-14) Blood Urea Nitrogen 11 mg/dL (8-26) Creatinine 0.6 mg/dL (0.7-1.3) L Estimated GFR (Cockcroft-Gault) 134.0 BUN/Creatinine Ratio 18 (6-20) Glucose Level 110 mg/dL (70-99) H Lactic Acid Level 1.1 mmol/L (0.4-2.0) Calcium Level 9.4 mg/dL (8.5-10.1) Magnesium Level 1.4 mg/dL (1.8-2.4) L Total Bilirubin 0.8 mg/dL (0.2-1.0) Aspartate Amino Transferase (AST) 19 U/L (15-37) Alanine Aminotransferase (ALT) 38 U/L (16-63) Alkaline Phosphatase 57 U/L (46-116) Creatine Kinase 152 U/L (39-308) Creatine Kinase MB (Mass) 3.6 ng/mL (0.0-3.6) Creatine Kinase MB Relative Index 2.4 % (0-4) Troponin I Quantitative < 0.017 ng/mL (0.000-0.055) [id number]-[id number]-Type Natriuretic Peptide 1398 pg/mL (0-124) H Total Protein 6.9 g/dL (6.4-8.2) Albumin 3.9 g/dL (3.4-5.0) Albumin/Globulin Ratio 1.3 (1.0-1.7) Lipase 73 U/L (73-393) Laboratory Tests 12/29/18 10:40 Laboratory Tests 12/29/18 10:40 EKG EKG @1015 Sinus rhythm with arrythmia, NO ST elevation, QRS 94ms, QT/QTc 406/423ms Radiology/Procedures Radiology/Procedures PROCEDURE: CT ANGIOGRAPHY CHEST PQRS Compliance statement: One or more of the following individualized dose reduction techniques were utilized for this examination: 1. Automated exposure control. 2. Adjustment of the mA and/or kV according to patient size. 3. Use of iterative reconstruction technique. Indication:Shortness of breath. Elevated d-dimer. TECHNIQUE: CT angiogram of the chest with IV contrast with multiplanar MIP reformats. COMPARISON:None FINDINGS: Highly suboptimal PE study due to contrast bolus timing. However there is no evidence of central, segmental or proximal subsegmental filling defects in the pulmonary arteries. Evaluation of distal subsegmental pulmonary arteries is limited. Heart is normal in size. No pericardial effusion. Trace bilateral pleural effusions. Clear neck base. No enlarged axillary adenopathy. No mediastinal adenopathy. Enlarged right hilar lymph nodes are seen, the largest measuring 2.6 x 1.8 cm. Enlarged left hilar lymph node measures 2.0 x 1.5 cm. Central airways are patent. Interstitial pulmonary edema is seen in the bilateral lung bases. 7 mm right lower lobe subpleural nodular opacity (series 3 image 74). 1 cm focus of groundglass opacity seen in the left lower lobe (series 3 image 75). Visualized sections through the liver, spleen, adrenals within normal limits. No suspicious bony lesion. IMPRESSION: 1. Slightly suboptimal PE study due to contrast bolus timing. No apparent PE. 2. Bilateral lower lobe pulmonary edema with trace bilateral effusions. 3. Couple of lower lobe nodules bilaterally, nonspecific. Follow-up CT chest in 3-4 months recommended. 4. Bilateral hilar adenopathy, nonspecific may be reactive or metastatic. Attention on follow-up. Electronically signed by: Jaxon Romero DO (12/29/2018 1:11 PM) [facility] Course & Med Decision Making Course & Med Decision Making Pertinent Labs and Imaging studies reviewed. (See chart for details) Patient presents with 2 week history of progressive shortness of air. Patient reports associated orthopnea. Denies fever or chills. Denies chest pain or pleu ritic pain. Denies leg swelling or calf tenderness. History of smoking. Denies history of asthma or COPD. Denies history of CHF. EKG is stable. Labs obtained and posted to chart. Hypomagnesemia addressed. D-dimer elevated. Troponin within normal limits. CT angio chest obtained without signs of PE or focal infiltration. Symptomatic treatment provided with respiratory nebs and IV steroid with interval improvement. Patient stable for discharge with outpatient follow-up with PCP. Discussed findings and plan with patient, who acknowledges understanding and agreement. Dragon Disclaimer Dragon Disclaimer This electronic medical record was generated, in whole or in part, using a voice recognition dictation system. Departure Departure Impression: Primary Impression: Shortness of breath Additional Impression: Hypomagnesemia Disposition: 01 HOME, SELF-CARE Condition: STABLE Referrals: RODRIGUEZ CORNELL (PCP) ONEIDA BELTRE MD Patient Instructions: Acute Bronchitis, [id number], Hypomagnesemia, Shortness of Breath, [id number] Additional Instructions: Continue previously prescribed antibiotics from your PCP until completed. Scripts Prednisone (PREDNISONE) 20 Mg Tablet 2 TAB PO DAILY, #8 TAB Start this prescription tomorrow, 12/30/18 Prov: KATI ISRAEL DO 12/29/18 Albuterol Sulfate (Proair Hfa) 8.5 Gm Hfa.aer.ad 1 PUFF INH PRN Q6HRS PRN for SHORTNESS OF BREATH, #1 INHALER USE spacer Prov: KATI ISRAEL DO 12/29/18 Problem Qualifiers KATI ISRAEL DO Dec 29, 2018 11:16
[2018-12-29] MEDS ORDERED: MAGNESIUM SULFATE 2GM 50 ML IV ONE (11:30)
[2018-12-29 11:38] VITALS: BP 140/68
[2018-12-29] MEDS ORDERED: IOHEXOL 350 MG/ML 100 ML VIAL. IV ONE (12:00)
[2018-12-29] MEDS ORDERED: CONTRAST GIVEN. MC PRN (12:00)
--- NOTE | 2018-12-29 13:14 | RAD ---
PQRS Compliance statement: One or more of the following individualized dose reduction techniques were utilized for this examination: 1. Automated exposure control. 2. Adjustment of the mA and/or kV according to patient size. 3. Use of iterative reconstruction technique. Indication:Shortness of breath. Elevated d-dimer. TECHNIQUE: CT angiogram of the chest with IV contrast with multiplanar MIP reformats. COMPARISON:None FINDINGS: Highly suboptimal PE study due to contrast bolus timing. However there is no evidence of central, segmental or proximal subsegmental filling defects in the pulmonary arteries. Evaluation of distal subsegmental pulmonary arteries is limited. Heart is normal in size. No pericardial effusion. Trace bilateral pleural effusions. Clear neck base. No enlarged axillary adenopathy. No mediastinal adenopathy. Enlarged right hilar lymph nodes are seen, the largest measuring 2.6 x 1.8 cm. Enlarged left hilar lymph node measures 2.0 x 1.5 cm. Central airways are patent. Interstitial pulmonary edema is seen in the bilateral lung bases. 7 mm right lower lobe subpleural nodular opacity (series 3 image 74). 1 cm focus of groundglass opacity seen in the left lower lobe (series 3 image 75). Visualized sections through the liver, spleen, adrenals within normal limits. No suspicious bony lesion. IMPRESSION: 1. Slightly suboptimal PE study due to contrast bolus timing. No apparent PE. 2. Bilateral lower lobe pulmonary edema with trace bilateral effusions. 3. Couple of lower lobe nodules bilaterally, nonspecific. Follow-up CT chest in 3-4 months recommended. 4. Bilateral hilar adenopathy, nonspecific may be reactive or metastatic. Attention on follow-up. Electronically signed by: Jaxon Romero DO (12/29/2018 1:11 PM) [facility]
[2018-12-29] MEDS ORDERED: PRED20TA PO (13:35)
[2018-12-29] MEDS ORDERED: ALBU2.5V8 INH (13:35)
--- NOTE | 2018-12-29 13:40 | EKG ---
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
== END 2018-12-29 13:51 | disposition home or self-care (01) ==
LOC: ER 09:52
DX: R06.02 Shortness of breath (principal); E83.42 Hypomagnesemia; E78.00 Pure hypercholesterolemia, unspecified; I10 Essential (primary) hypertension; Z96.651 Presence of right artificial knee joint; Z87.891 Personal history of nicotine dependence; F10.20 Alcohol dependence, uncomplicated; Y90.9 Presence of alcohol in blood, level not specified; Z79.82 Long term (current) use of aspirin
CPT/HCPCS: 36415; 71275; 80053; 82553; 83605; 83690; 83735; 83880; 84484; 85025; 85379; 93005; 94640; 96365; 96366; 96375; 99285; J1100; J3475; J7030; J7620; Q9967

== ENCOUNTER → 2019-01-29 | Outpatient (CLI) | payer MEDICARE ==
[~2019-01-29] MED LIST changes: +ALBU2.5V8 INH; +MAGN64TA6 PO; -MELA3TAB2 PO; +MELA3TAB56 PO; +PRED20TA PO
--- NOTE | 2019-01-29 23:43 | KCIC ---
CHEST PA LATERAL CLINICAL INDICATION: Bronchitis. COMPARISON: 08/28/2018 FINDINGS: Heart is normal in size. Diffuse bilateral interstitial opacities are seen in the bilateral lower lung zones. No focal consolidation. No pneumothorax or effusion. Visualized bony thorax within normal limits. IMPRESSION: Interstitial opacities in the bilateral lower lung zones suggests atypical/viral infection or edema. Electronically signed by: Jaxon Romero DO (01/29/2019 11:40 PM) [facility]
== END | disposition home or self-care (01) ==
LOC: KCIC 11:23
PROVIDERS: ATTEND Family Medicine
DX: J98.4 Other disorders of lung (principal); J20.9 Acute bronchitis, unspecified
CPT/HCPCS: 71046

== ENCOUNTER → 2019-02-26 | Outpatient (CLI) | payer MEDICARE ==
[2019-02-03 15:00] VITALS: BP 159/84
[~2019-02-26] MED LIST changes: +APIX5TAB PO; +FURO40TA4 PO; +ZOLPIDEM 5 MG TABLET. PO ONE
--- NOTE | 2019-02-27 12:43 | SLEEP ---
DATE OF STUDY: 02/26/2019 OBJECTIVE: The patient is a 68-year-old male with insomnia, restless legs, snoring, fatigue, observed apnea, excessive somnolence. Height 6 feet 4 inches, weight 298 pounds. Geneva sleep score 8. Body mass index 40. INTERPRETATION: Sleep architecture is characterized by sleep efficiency of 49% across the 7.9 hours of recording time. There is an absence of stage 3 sleep. REM sleep volume is also decreased. Respiratory monitoring shows a total of 219 events for an apnea-hypopnea index of 56.9 events per hour of sleep and a minimum oxygen saturation of 79%. The patient is started on CPAP during the study. At a setting of 15, he continued to have an apnea-hypopnea index of 42.9 events per hour of sleep. The patient was very restless at night and the patient has been unable to tolerate CPAP in the past, so there were thus technical difficulties achieving a better CPAP titration. The periodic limb movements of sleep occur at the rate of 96 events per hour, 11 per hour associated with arousal. No significant cardiac arrhythmias are observed. IMPRESSION: Abnormal polysomnogram showing severe obstructive sleep apnea and hypopnea and CPAP titration was unable to be completed. RECOMMENDATIONS: 1. The patient could be started on empirically a high setting of variable CPAP and then return to the lab for further titration. The catheterization laboratory technician used a Respironics DreamWear full face mask, medium size. The patient most likely will require BiPAP titration. 2. He should pursue weight loss and avoid sedatives and alcohol. Thank you for letting us help with the patient's care. KATHY WINTER MD DR: FRANKLIN/jyoti JOB#: [id number] / [id number] RODRIGUEZ Gamez MD, AMAN MD
== END | disposition home or self-care (01) ==
LOC: SLPLAB 18:45
PROVIDERS: ATTEND Internal Medicine Critical Care Medicine
DX: G47.33 Obstructive sleep apnea (adult) (pediatric) (principal)
CPT/HCPCS: 95810

== ENCOUNTER → 2019-03-21 | Outpatient (CLI) | payer MEDICARE ==
[2019-02-03 15:00] VITALS: BP 159/84
[~2019-03-21] MED LIST changes: -ZOLPIDEM 5 MG TABLET. PO ONE
--- NOTE | 2019-03-22 14:29 | SLEEP ---
DATE OF STUDY: 03/21/2019 SLEEP STUDY REFERRING PHYSICIAN: Alexander Velazquez MD The patient is 68-year-old who weighs 190 pounds with a BMI of 35. The patient had a previous sleep study and was found to have severe obstructive sleep apnea. His AHI was 56.9 per hour. The patient was placed on CPAP, but could not achieve a therapeutic CPAP pressure. As a result, he was referred back for BiPAP titration study. During the night study, the patient spent 407 minutes in bed and slept for 232 minutes with a low sleep efficiency of 57%. Sleep latency was 34 minutes with a REM latency of 110 minutes. Sleep architecture showed increased stage 1 and stage 2 sleep, absent slow wave and normal REM sleep. EKG monitoring revealed normal sinus rhythm, average heart rate was 75 beats per minute. No arrhythmias observed. PLMS were seen at an index of 186 per hour and 9 per hour caused EEG arousals. The patient was started on BiPAP at a pressure of 15/9 and titrated up to 20/12. However, best results were seen at a BiPAP pressure of 16/9. At that pressure, the patient slept for 200 minutes. The patient had supine sleep as well as short REM periods were observed. The patient's AHI was 3 per hour. Oxygen saturations remained in the mid to high 80s with few desaturations in the low 80s. The patient used a medium size full face mask. IMPRESSION: 1. Severe sleep apnea diagnosed by previous sleep study. 2. Severe PLMS at an index of 186 per hour and 9 per hour caused EEG arousals. 3. Reduced sleep efficiency resulting from sleep maintenance insomnia. 4. Nocturnal hypoxia not completely resolved with BIPAP RECOMMENDATIONS: 1. BiPAP at 16/9 completely eliminated the patient's sleep apnea and should be used on a nightly basis. I would recommend having a nocturnal oximetry study on current BiPAP pressure to assess the need for supplemental oxygen. 2. Follow up in 4-6 weeks to assess compliance with BiPAP and to document clinical improvement. 3. Weight loss is strongly advised. 4. Avoid ENVIRONMENTAL COMPLIANCE OFFICER depressants. 5. Caution regarding driving until symptoms of sleep apnea resolved with the use of BiPAP. 6. The patient should be further evaluated for symptoms of restless legs during the day and if present, it can be treated with dopaminergic agonist agents. ONEIDA BELTRE MD DR: DENISE/jyoti JOB#: [id number] / [id number] ALEXANDER Gamez MD MTDD
== END | disposition home or self-care (01) ==
LOC: RT 18:49
PROVIDERS: ATTEND Internal Medicine Critical Care Medicine
DX: G47.33 Obstructive sleep apnea (adult) (pediatric) (principal)
CPT/HCPCS: 95811

== ENCOUNTER → 2019-11-01 | Outpatient (CLI) | payer MEDICARE ==
[2019-02-03 15:00] VITALS: BP 159/84
[~2019-11-01] MED LIST changes: +MELA3TAB4 PO; -MELA3TAB56 PO; +POTA20TA4 PO; -POTA20TA82 PO
--- NOTE | 2019-11-01 16:13 | KCIC ---
EXAM: Right knee, 3 views. HISTORY: Fall. Pain. COMPARISON: 09/12/2018. FINDINGS: 3 views of the right knee are obtained. There is a right knee arthroplasty in expected position. There is no evidence of periprosthetic fracture or loosening. There is a small right knee effusion. There are vascular calcifications and vascular clips. There is calcification or ossification along the medial aspect of the medial femoral condyle due to suspected prior medial collateral ligament injury. IMPRESSION: 1. Right knee arthroplasty in expected position. 2. Small right knee effusion. Electronically signed by: Rita Durbin MD (11/01/2019 4:10 PM) [id number]
== END | disposition home or self-care (01) ==
LOC: KCIC 15:31
PROVIDERS: ATTEND Family Medicine
DX: M25.461 Effusion, right knee (principal); Z96.651 Presence of right artificial knee joint
CPT/HCPCS: 73562

== ENCOUNTER → 2020-03-26 | Outpatient (CLI) | payer MEDICARE ==
[2019-02-03 15:00] VITALS: BP 159/84
[~2020-03-26] MED LIST changes: +AMLO-187 PO; -AMLO10TA8 PO
--- NOTE | 2020-03-26 15:02 | KCIC ---
Study: CR CHEST PA LATERAL Indication: Amiodarone therapy. Open heart surgery April 2019 Comparison: 02/02/2019 Findings: Status post median sternotomy. The cardiomediastinal silhouette and blanca are at the upper limits of normal for size but similar to the comparison. No significant change in aeration pattern of both lungs with haziness at both lung bases compatible with summation artifact from overlying breast tissue. No pneumothorax or layering effusion. Impression: Besides newly visualized median sternotomy wires, no significant change in the appearance of the cardiomediastinal silhouette or lungs relative to the 02/02/2019 exam. Electronically signed by: ANTONIA TREJO MD (03/26/2020 2:59 PM) [id number]
== END ==
LOC: KCIC 09:26
PROVIDERS: ATTEND Internal Medicine Cardiovascular Disease
DX: Z79.899 Other long term (current) drug therapy (principal)
CPT/HCPCS: 71046

== ENCOUNTER → 2021-05-20 | Outpatient (CLI) | payer MEDICARE ==
[2019-02-03 15:00] VITALS: BP 159/84
[~2021-05-20] MED LIST changes: -LISI-334 PO; +LISI20TA18 PO
--- NOTE | 2021-05-20 11:11 | KCIC ---
EXAM: Chest, 2 views. HISTORY: Amiodarone therapy. COMPARISON: 03/26/2020 FINDINGS: 2 views of the chest are obtained. There is stable increased bilateral lower lobe interstit ial opacity likely due to atelectasis or chronic interstitial changes. There is no consolidation, ple ural effusion or pneumothorax. There is a stable enlarged cardiac silhouette and evidence of prior me spencer sternotomy. There is a left atrial appendage clip. IMPRESSION: Stable chronic appearing interstitial changes and cardiomegaly. Electronically signed by: Rita Durbin MD (05/20/2021 11:09 AM) [id number]
== END ==
LOC: KCIC 10:52
PROVIDERS: ATTEND Internal Medicine Cardiovascular Disease
DX: I51.7 Cardiomegaly (principal); Z79.899 Other long term (current) drug therapy; Z98.890 Other specified postprocedural states
CPT/HCPCS: 71046